=== PATIENT | female | born 1995 | race Caucasian/White ===

== ENCOUNTER 2017-08-06 06:56 | Emergency (ER) | payer OTHER ==
[2017-08-06 07:01] VITALS: TEMP 98.8; O2SAT 98
--- NOTE | 2017-08-06 07:51 | ED PDOC ---
Arrival/HPI - General Chief Complaint: Lower Extremity Problem/Injury Time Seen by Provider: 08/06/17 07:17 Historian: Patient - History of Present Illness Narrative History of Present Illness (Text): 08/06/17 07:43 A 22 year old female, who denies any past medical history, presents to the emergency department complaining of worsening left foot pain over the past few weeks. Patient reports mild swelling since yesterday which caused her to come in today for evaluation. She notes her pain is exacerbated with ambulation and relieved at rest. Patient denies any trauma, injury, fever, chills, nausea, vomiting, abdominal pain, chest pain, shortness of breath, calf pain or any other complaints. Patient denies any recent prolonged traveling. PMD: Dr. Lafleur Time/Duration: Other (few weeks) Symptom Course: Worsening Quality: Other Context: Home Past Medical History - Provider Review Nursing Documentation Reviewed: Yes - Cardiac Hx Cardiac Disorders: No - Pulmonary Hx Asthma: Yes - Neurological Hx Neurological Disorder: No - HEENT Hx HEENT Disorder: No - Renal Hx Renal Disorder: No - Endocrine/Metabolic Hx Endocrine Disorders: No - Hematological/Oncological Hx Blood Disorders: No - Integumentary Hx Dermatological Disorder: No - Musculoskeletal/Rheumatological Hx Musculoskeletal Disorders: No - Gastrointestinal Hx Gastrointestinal Disorders: No - Genitourinary/Gynecological Hx Genitourinary Disorders: No - Psychiatric Hx Psychophysiologic Disorder: No Hx Substance Use: No - Anesthesia Hx Anesthesia: No Family/Social History - Physician Review Nursing Documentation Reviewed: Yes Family/Social History: No Known Family HX Smoking Status: Never Smoked Hx Alcohol Use: No Hx Substance Use: No Allergies/Home Meds Allergies/Adverse Reactions: Allergies No Known Allergies Allergy (Verified 08/06/17 06:58) Review of Systems - Physician Review All systems were reviewed & negative as marked: Yes - Review of Systems Constitutional: absent: Fevers, Night Sweats Respiratory: absent: SOB Cardiovascular: absent: Chest Pain, Calf Pain Gastrointestinal: absent: Abdominal Pain, Nausea, Vomiting Musculoskeletal: Other (Left foot pain and swelling) Physical Exam Vital Signs Reviewed: Yes Vital Signs Temp Pulse Resp BP Pulse Ox 08/06/17 09:34 101 H 16 131/76 98 08/06/17 06:58 98.8 F 107 H 18 136/88 98 08/06/17 06:57 98.8 F 107 H 16 136/88 98 Temperature: Afebrile Blood Pressure: Normal Pulse: Tachycardic Respiratory Rate: Normal Appearance: Positive for: Well-Appearing, Non-Toxic, Comfortable Pain Distress: None Mental Status: Positive for: Alert and Oriented X 3 - Systems Exam Head: Present: Atraumatic, Normocephalic Pupils: Present: PERRL Extroacular Muscles: Present: EOMI Conjunctiva: Present: Normal Lower Extremity: Present: NORMAL PULSES (DP intact), Normal ROM, Tenderness (to medial aspect of left ankle), Swelling (in left ankle), Neurovascularly Intact. No: Edema, CALF TENDERNESS, Erythema, Deformity, Temperature Abnormalties Neurological: Present: GCS=15, CN II-XII Intact, Speech Normal Skin: Present: Warm, Dry, Normal Color. No: Rashes Psychiatric: Present: Alert, Oriented x 3, Normal Insight, Normal Concentration Medical Decision Making ED Course and Treatment: 08/06/17 07:43 Impression: A 22 year old female with left foot pain and swelling. Differential Diagnosis included but are not limited to: Musculoskeletal, less likely DVT Plan: -- Duplex lower extremity ultrasound -- Left ankle xray -- Left foot xray -- Motrin -- Reassess and disposition Progress Notes: 08/06/17 08:56 Spoke with project technician, states ultrasound is negative for DVT. 08/06/17 09:35 Patient feeling better. Jalen wrap placed on left ankle and crutches given with instructions. Patient explained that she needs to rest ice and elevate leg at least 3x daily. She will take naproxen for antinlammatory and pain. She will follow up with her PMD in 2-3days. She was advised to return to the ED if symptoms worsen or any other concern. - RAD Interpretation Radiology Orders: 08/06/17 07:43 ANKLE LEFT 3 VIEWS ROUTINE [RAD] Stat FOOT LEFT 3 VIEWS ROUTINE [RAD] Stat DUPLEX LOWER EXTRM VEIN LEFT [US] Stat - Medication Orders Current Medication Orders: Discontinued Medications Ibuprofen (Motrin Tab) 600 mg PO STAT STA Stop: 08/06/17 07:47 Last Admin: 08/06/17 08:08 Dose: 600 mg MAR Pain/Vitals Document 08/06/17 08:08 SRE (Rec: 08/06/17 08:09 SRE [id number]) Pain Reassessment Is This A Pain ReAssessment? Yes Sleep Is patient sleeping during reassessment? No Presence of Pain Presence of Pain Yes Pain Scale Used Pain Scale Used Numeric Location Left, Right or Bilateral Left Pain Location Body Site Ankle - Scribe Statement The provider has reviewed the documentation as recorded by the Mora Crenshaw Provider Scribe Attestation: All medical record entries made by the Scribe were at my direction and personally dictated by me. I have reviewed the chart and agree that the record accurately reflects my personal performance of the history, physical exam, medical decision making, and the department course for this patient. I have also personally directed, reviewed, and agree with the discharge instructions and disposition. Disposition/Present on Arrival - Present on Arrival Any Indicators Present on Arrival: No History of DVT/PE: No History of Uncontrolled Diabetes: No Urinary Catheter: No History of Decub. Ulcer: No History Surgical Site Infection Following: None - Disposition Have Diagnosis and Disposition been Completed?: Yes Diagnosis: Ankle pain, Foot pain Disposition: HOME/ ROUTINE Disposition Time: 09:35 Patient Plan: Discharge Patient Problems: Current Active Problems Problem Status Onset Ankle pain Acute Foot pain Acute Condition: IMPROVED Discharge Instructions (ExitCare): Swollen Joint (ED) Additional Instructions: Cayden, thank you for letting us take care of you today. Your provider was Dr. Zaman. You were treated for Left Foot and Ankle Pain. The emergency medical care you received today was directed at your acute symptoms. If you were prescribed any medication, please fill it and take as directed. It may take several days for your symptoms to resolve. Return to the Emergency Department if your symptoms worsen, do not improve, or if you have any other problems. Please contact your doctor or call one of the physicians/clinics you have been referred to that are listed on the Patient Visit Information form that is included in your discharge packet. Bring any paperwork you were given at discharge with you along with any medications you are taking to your follow up visit. Our treatment cannot replace ongoing medical care by a primary care provider (PCP) outside of the emergency department. Thank you for allowing the [facility] team to be part of your care today. If you had an X-Ray or CT scan: A Radiologist will review the ED reading if any change in treatment is needed we will contact you. If you had a blood, urine, or wound culture: It will take several days for the results, if any change in treatment is needed we will contact you. If you had an STI test: It will take 48 hours for the results. Please call after 1 week if you have not heard back. Prescriptions: Naproxen 500 mg PO BID PRN #30 tab PRN Reason: Pain, Moderate (4-7) Referrals: Rizwana Lafleur MD [Primary Care Provider] - Follow up with primary Forms: [facility] (Frisian), WORK NOTE
--- NOTE | 2017-08-06 09:20 | US ---
PROCEDURE: Left lower extremity venous US HISTORY: Leg pain and swelling. Evaluate for DVT. PHYSICIAN(S): Cesar Amaral MD. TECHNIQUE: Duplex sonography and color-flow Doppler with graded compression were used to evaluate the deep venous system of the left lower extremity. FINDINGS: The visualized deep venous system of the left lower extremity is sonographically normal and compressible. Normal wave forms and augmentation are seen. There is no sonographic evidence for deep venous thrombosis in the visualized segments of the left lower extremity. IMPRESSION: 1. No sonographic evidence for deep venous thrombosis in the visualized segments of the left lower extremity.
[2017-08-06 09:34] VITALS: BP 131/76; PULSE 101; RESP 16
--- NOTE | 2017-08-06 10:51 | RAD ---
PROCEDURE: Left Ankle Radiographs. HISTORY: pain r/o fx COMPARISON: Correlation made with concurrent radiographs left foot the the Comparison made with plain film radiographs of the left foot. FINDINGS: BONES: Normal. No fracture. Talar dome intact. JOINTS: Normal. No osteoarthritis. Ankle mortise maintained. . SOFT TISSUES: Mild bilateral soft tissue swelling OTHER FINDINGS: None. IMPRESSION: No evidence of acute displaced fracture nor dislocation. No garrido Mild bilateral soft tissue swelling.
--- NOTE | 2017-08-06 11:01 | RAD ---
PROCEDURE: Left Foot Radiographs. HISTORY: pain r/o fx COMPARISON: No prior however correlation made with concurrent radiographs of the left ankle FINDINGS: BONES: No evidence acute displaced fracture nor dislocation. The osseous intact. No cortical destructive changes JOINTS: Joint spaces preserved. SOFT TISSUES: There appears to be some mild diffuse soft tissue swelling OTHER FINDINGS: None. IMPRESSION: No acute fractures.
== END 2017-08-06 09:41 | disposition home or self-care (01) ==
LOC: ED 06:56
DX: M79.672 Pain in left foot (principal); M25.572 Pain in left ankle and joints of left foot